=== PATIENT | male | born 2000 | race Caucasian/White ===

== ENCOUNTER 2021-06-25 03:16 | Emergency (ER) | payer OTHER ==
--- NOTE | 2021-06-25 03:38 | ERPHSYRPT ---
- History of Present Illness Time Seen by Provider: 06/25/21 03:38 Source: patient, EMS Exam Limitations: no limitations Physician History: This is a 21-year-old white male patient who was brought in by the ambulance service because of shortness of breath and chest tightness. Patient is living at home with his parents because he had moved out of a dwelling he shared with his significant other. They do keep in touch but frequently have arguments per this patient's report. They had another one earlier this morning and prior to arrival. Patient states he does think he has some anxiety issues but is not taking any medication for it. He still was having shortness of breath some chest tightness and feeling faint upon arrival to the emergency department. He wanted to be evaluated. However, when I told him the work-up included urinalysis, urine drug screen, blood work, EKG, the patient stated that he needs to think about that work-up. He is not sure he wants to do all that. He was told that he would need to sign AGAINST MEDICAL ADVICE form if he leaves the emergency department. Timing/Duration: today Severity: mild Associated Symptoms: shortness of breath, chest pain, other ([place] as though he was going to pass out) Allergies/Adverse Reactions: No Known Drug Allergies Allergy (Unverified 06/25/21 03:17) Home Medications: No Reportable Medications [No Reported Medications] 06/25/21 [History] Travel Risk - International Travel Have you traveled outside of the country in past 3 weeks: No - Coronavirus Screening Are you exhibiting any of the following symptoms?: No Close contact with a COVID-19 positive Pt in past 14-21 Days: No - Review of Systems Constitutional: Other ([place] at home as though he was going to pass out) Eyes: No Symptoms Ears, Nose, & Throat: No Symptoms Respiratory: No Symptoms Cardiac: Chest Pain (Described as tightness) Abdominal/Gastrointestinal: No Symptoms Genitourinary Symptoms: No Symptoms Musculoskeletal: No Symptoms Skin: No Symptoms Neurological: No Symptoms Psychological: No Symptoms Endocrine: No Symptoms Hematologic/Lymphatic: No Symptoms Immunological/Allergic: No Symptoms All Other Systems: Reviewed and Negative - Past Medical History Pertinent Past Medical History: No - Past Surgical History Past Surgical History: No - Nursing Vital Signs Nursing Vital Signs: Initial Vital Signs Temperature 98.5 F 06/25/21 03:19 Pulse Rate 89 06/25/21 03:19 Respiratory Rate 14 06/25/21 03:19 Blood Pressure 139/78 06/25/21 03:19 O2 Sat by Pulse Oximetry 99 06/25/21 03:19 Pain Scale Pain Intensity 0 - Physical Exam General Appearance: no apparent distress, alert, anxiety, thin Eye Exam: PERRL/EOMI, eyes nml inspection Ears, Nose, Throat Exam: TMs normal, pharynx normal, moist mucous membranes, other (Patient has several facial piercings including earlobes eyebrows nose) Neck Exam: normal inspection, non-tender, supple, full range of motion Respiratory Exam: normal breath sounds, chest tenderness, lungs clear, airway intact, No respiratory distress Cardiovascular Exam: regular rate/rhythm, normal heart sounds, normal peripheral pulses Gastrointestinal/Abdomen Exam: soft, normal bowel sounds Rectal Exam: not done Back Exam: normal inspection, normal range of motion, No CVA tenderness, No vertebral tenderness Extremity Exam: normal inspection, normal range of motion, pelvis stable Neurologic Exam: alert, oriented x 3, cooperative, process control board operator II-XII nml as tested, normal mood/affect, nml cerebellar function, nml station & gait, sensation nml Skin Exam: normal color, warm, dry, other (Several skin piercings as above) Lymphatic Exam: No adenopathy SpO2 Interpretation: normal O2 Delivery: Room Air - Course Nursing assessment & vital signs reviewed: Yes EKG Interpreted by Me: RATE ([id number]), Sinus Rhythm, NORMAL AXIS, NORMAL INTERVALS, NORMAL QRS, NORMAL ST-T, Other (No acute ischemic changes on today's EKG. No comparison EKG available.) Ordered Tests: Active Orders 24 hr Category Date Time Status EKG-ER Only STAT Care 06/25/21 03:59 Active Pulse Oximetry (ED) STAT Care 06/25/21 03:59 Active CBC W DIFF Stat Lab 06/25/21 04:15 Completed CMP Stat Lab 06/25/21 04:15 Completed D-DIMER QUANTITATIVE Stat Lab 06/25/21 04:15 Completed TROPONIN Q3H Lab 06/25/21 04:15 Completed TROPONIN Q3H Lab 06/25/21 07:00 Ordered TROPONIN Q3H Lab 06/25/21 10:00 Ordered TROPONIN Q3H Lab 06/25/21 13:00 Ordered TROPONIN Q3H Lab 06/25/21 16:00 Ordered UA W/RFX UR CULTURE Stat Lab 06/25/21 04:02 Completed Urine Triage Profile Stat Lab 06/25/21 04:02 Completed Lab/Rad Data: Laboratory Result Diagrams 06/25/21 04:15 06/25/21 04:15 Laboratory Results 06/25/21 06/25/21 06/25/21 Range/Units 04:15 04:15 04:15 WBC (4.0-10.5) K/mm3 RBC (4.1-5.6) M/mm3 Hgb (12.5-18.0) gm/dl Hct (42-50) % MCV (78-100) fl MCH (26-32) pg MCHC (32-36) g/dl RDW (11.5-14.0) % Plt Count (150-450) K/mm3 MPV (7.5-11.0) fl Gran % (36.0-66.0) % Eos # (Auto) (0-0.5) Absolute Lymphs (auto) (1.0-4.6) Absolute Monos (auto) (0.0-1.3) Lymphocytes % (24.0-44.0) % Monocytes % (0.0-12.0) % Eosinophils % (0.00-5.0) % Basophils % (0.0-0.4) % Absolute Granulocytes (1.4-6.9) Basophils # (0-0.4) D-Dimer 340 (215-500) ng/mL Sodium 140 (137-145) mmol/L Potassium 3.7 (3.5-5.1) mmol/L Chloride 102 (98-107) mmol/L Carbon Dioxide 26 (22-30) mmol/L Anion Gap 15.7 H (5-15) MEQ/L BUN 7 L (9-20) mg/dL Creatinine 0.71 (0.66-1.25) mg/dL Estimated GFR > 60.0 ML/MIN Glucose 127 H (74-106) mg/dL Calcium 9.4 (8.4-10.2) mg/dL Total Bilirubin 0.50 (0.2-1.3) mg/dL AST 23 (17-59) U/L ALT 10 (0-50) U/L Alkaline Phosphatase 97 (38-126) U/L Troponin I < 0.012 (0.000-0.034) ng/mL Serum Total Protein 8.8 H (6.3-8.2) g/dL Albumin 4.6 (3.5-5.0) g/dL Urine Color (YELLOW) Urine Appearance (CLEAR) Urine pH (5-6) Ur Specific [place] (1.005-1.025) Urine Protein (Negative) Urine Ketones (NEGATIVE) Urine Blood (0-5) Rene/ul Urine Nitrite (NEGATIVE) Urine Bilirubin (NEGATIVE) Urine Urobilinogen (0-1) mg/dL Ur Leukocyte Esterase (NEGATIVE) Urine WBC (Auto) (0-5) /HPF Urine RBC (Auto) (0-2) /HPF U Epithel Cells (Auto) (FEW) /HPF Urine Bacteria (Auto) (NEGATIVE) /HPF Urine Culture Reflexed (NO) Urine Glucose (NEGATIVE) mg/dL Urine Opiates Level (NEGATIVE) Ur Methadone (NEGATIVE) Urine Barbiturates (NEGATIVE) Ur Phencyclidine (PCP) (NEGATIVE) Urine Amphetamine (NEGATIVE) U Benzodiazepine Level (NEGATIVE) Urine Cocaine (NEGATIVE) Urine Marijuana (THC) (NEGATIVE) 06/25/21 06/25/21 06/25/21 Range/Units 04:15 04:02 04:02 WBC 7.1 (4.0-10.5) K/mm3 RBC 5.16 (4.1-5.6) M/mm3 Hgb 14.7 (12.5-18.0) gm/dl Hct 43.2 (42-50) % MCV 83.7 (78-100) fl MCH 28.5 (26-32) pg MCHC 34.0 (32-36) g/dl RDW 13.9 (11.5-14.0) % Plt Count 87 L (150-450) K/mm3 MPV 9.2 (7.5-11.0) fl Gran % 86.9 H (36.0-66.0) % Eos # (Auto) 0 (0-0.5) Absolute Lymphs (auto) 0.47 L (1.0-4.6) Absolute Monos (auto) 0.45 (0.0-1.3) Lymphocytes % 6.6 L (24.0-44.0) % Monocytes % 6.4 (0.0-12.0) % Eosinophils % 0.0 (0.00-5.0) % Basophils % 0.1 (0.0-0.4) % Absolute Granulocytes 6.15 (1.4-6.9) Basophils # 0.01 (0-0.4) D-Dimer (215-500) ng/mL Sodium (137-145) mmol/L Potassium (3.5-5.1) mmol/L Chloride (98-107) mmol/L Carbon Dioxide (22-30) mmol/L Anion Gap (5-15) MEQ/L BUN (9-20) mg/dL Creatinine (0.66-1.25) mg/dL Estimated GFR ML/MIN Glucose (74-106) mg/dL Calcium (8.4-10.2) mg/dL Total Bilirubin (0.2-1.3) mg/dL AST (17-59) U/L ALT (0-50) U/L Alkaline Phosphatase (38-126) U/L Troponin I (0.000-0.034) ng/mL Serum Total Protein (6.3-8.2) g/dL Albumin (3.5-5.0) g/dL Urine Color STRAW (YELLOW) Urine Appearance CLEAR (CLEAR) Urine pH 7.0 (5-6) Ur Specific [place] 1.006 (1.005-1.025) Urine Protein NEGATIVE (Negative) Urine Ketones NEGATIVE (NEGATIVE) Urine Blood NEGATIVE (0-5) Rene/ul Urine Nitrite NEGATIVE (NEGATIVE) Urine Bilirubin NEGATIVE (NEGATIVE) Urine Urobilinogen NEGATIVE (0-1) mg/dL Ur Leukocyte Esterase NEGATIVE (NEGATIVE) Urine WBC (Auto) NONE (0-5) /HPF Urine RBC (Auto) NONE (0-2) /HPF U Epithel Cells (Auto) NONE (FEW) /HPF Urine Bacteria (Auto) NONE SEEN (NEGATIVE) /HPF Urine Culture Reflexed NO (NO) Urine Glucose NEGATIVE (NEGATIVE) mg/dL Urine Opiates Level NEGATIVE (NEGATIVE) Ur Methadone NEGATIVE (NEGATIVE) Urine Barbiturates NEGATIVE (NEGATIVE) Ur Phencyclidine (PCP) NEGATIVE (NEGATIVE) Urine Amphetamine NEGATIVE (NEGATIVE) U Benzodiazepine Level NEGATIVE (NEGATIVE) Urine Cocaine NEGATIVE (NEGATIVE) Urine Marijuana (THC) NEGATIVE (NEGATIVE) - Progress Progress: improved Counseled pt/family regarding: lab results, diagnosis, need for follow-up - Departure Departure Disposition: Home Clinical Impression: Non-cardiac chest pain, Anxiety Condition: Stable Critical Care Time: No Referrals: ROSA ELENA MILAN [ACTIVE STAFF] - Follow up/PCP as directed Additional Instructions: Follow-up with your primary care physician for further management. Have them address anxiety issues as well.
[2021-06-25 03:51] VITALS: O2SAT 99
[2021-06-25 04:23] LABS: Appearance CLEAR (CLEAR); Bilirubin NEGATIVE (NEGATIVE); Blood NEGATIVE Ery/ul (0-5); Glucose NEGATIVE (NEGATIVE); Ketones NEGATIVE (NEGATIVE); Leukocyte Esterase NEGATIVE (NEGATIVE); Nitrite NEGATIVE (NEGATIVE); Protein,Urine Dip NEGATIVE (Negative); Specific Gravity 1.006 (1.005-1.025); Urobilinogen NEGATIVE mg/dL (0-1)
[2021-06-25 04:25] LABS: Bacteria NONE SEEN /HPF (NEGATIVE)
[2021-06-25 04:27] LABS: Absolute Neutrophil Ct (ANC) 6.15 (1.4-6.9); Basophil (Absolute #) 0.01 (0-0.4); Eosinophil (Absolute #) 0 (0-0.5); Hematocrit 43.2 % (42-50); Hemoglobin 14.7 gm/dl (12.5-18.0); Lymphocyte (Absolute #) 0.47 (1.0-4.6); Lymphocytes % 6.6 % (24.0-44.0); Mean Cell Volume 83.7 fl (78-100); Mean Corpuscular Hemoglobin 28.5 pg (26-32); Mean Platelet Volume 9.2 fl (7.5-11.0); Monocyte (Absolute #) 0.45 (0.0-1.3); Monocytes % 6.4 % (0.0-12.0); Neutrophil % 86.9 % (36.0-66.0); Platelet Count 87 K/mm3 (150-450); Red Blood Count 5.16 M/mm3 (4.1-5.6); Red Cell Distribution Width 13.9 % (11.5-14.0); White Blood Count 7.1 K/mm3 (4.0-10.5)
[2021-06-25 04:37] LABS: Amphetamine,Urine NEGATIVE (NEGATIVE); Barbiturate,Urine NEGATIVE (NEGATIVE); Benzodiazepine,Urine NEGATIVE (NEGATIVE); Cocaine,Urine NEGATIVE (NEGATIVE); Methadone,Urine NEGATIVE (NEGATIVE); Opiate,Urine NEGATIVE (NEGATIVE); PCP,Urine NEGATIVE (NEGATIVE); THC,Urine NEGATIVE (NEGATIVE)
[2021-06-25 04:42] LABS: ALBUMIN 4.6 g/dL (3.5-5.0); ALKALINE PHOSPHATASE 97 U/L (38-126); ANION GAP 15.7 MEQ/L (5-15); BLOOD UREA NITROGEN 7 mg/dL (9-20); CHLORIDE 102 mmol/L (98-107); Calcium 9.4 mg/dL (8.4-10.2); Carbon Dioxide 26 mmol/L (22-30); Creatinine 1 0.71 mg/dL (0.66-1.25); EST GLOMERULAR FILTRATION RATE > 60.0 ML/MIN; Glucose 127 mg/dL (74-106); Potassium 3.7 mmol/L (3.5-5.1); SGOT/AST 23 U/L (17-59); SGPT/ALT 10 U/L (0-50); SODIUM 140 mmol/L (137-145); Total Protein 8.8 g/dL (6.3-8.2)
[2021-06-25 04:59] VITALS: BP 137/88; PULSE 91
[2021-06-25 06:49] LABS: Slide Review 1 YES
== END 2021-06-25 05:06 | disposition home or self-care (01) ==
LOC: ED 03:16
DX: R07.89 Other chest pain (principal); F41.9 Anxiety disorder, unspecified; R06.02 Shortness of breath
CPT/HCPCS: 36415; 80053; 80307; 81001; 84484; 85025; 85379; 93005; 94760; 99284